=== PATIENT | female | born 1950 | race Caucasian/White ===

== ENCOUNTER 2017-03-21 12:27 | Emergency (ER) | payer BC ==
[~2017-03-21] VITALS: Ht 162.5 cm; Wt 90.7 kg
[~2017-03-21 12:27] MED LIST: ADVAIR 250/501 EA INH; ATARAX50 MG PO; ATOXIMETIN-B1 CAP PO; BENTYL10 MG PO; BIAXIN500 MG PO; CELEBREX200 MG PO; COMBIVENT1 ARO IH; CYMBALTA60 MG PO; DARVOCET N 1001 TAB PO; DOXYCYCLINE100 M3 PO; ESTRACE0.5 MG PO; HYDROCODONE BIT1 T11 PO; LASIX40 MG PO; MICARDIS40 MG PO; MOTRIN800 MG PO; NORFLEX100 MG PO; PANTOPRAZOLE SO40 MG PO; POTASSIUM20 MEQ PO; PREDNISONE10 MG PO; PREDNISONE20 MG PO; PREMARIN0.625 M1 PO; ROBITUSSIN AC 110 ML PO; SINGULAIR10 MG PO; TAMIFLU75 MG PO; TRAZODONE50 MG PO; VITAMIN D1000 IU PO; XANAX0.25 MG PO
[2017-03-21 14:56] VITALS: BP 123/57
[2017-03-21] MEDS ORDERED: EPIPEN 2-P0.3 MG/0.3 IJ (15:47)
== END 2017-03-21 15:50 | disposition home or self-care (01) ==
LOC: ED 12:27
DX: T63.441A Toxic effect of venom of bees, accidental (unintentional), initial encounter (principal); Z91.030 Bee allergy status; Z88.0 Allergy status to penicillin; Z88.1 Allergy status to other antibiotic agents; Z79.899 Other long term (current) drug therapy; Y92.9 Unspecified place or not applicable

== ENCOUNTER → 2018-02-07 | Outpatient (CLI) | payer MEDICARE ==
[~2018-02-07] MED LIST changes: +EPIPEN 2-P0.3 MG/0.3 IJ
== END | disposition home or self-care (01) ==
LOC: RAD 18:38
DX: R05 Cough (principal); R06.02 Shortness of breath; R09.89 Other specified symptoms and signs involving the circulatory and respiratory systems; R06.2 Wheezing

== ENCOUNTER 2019-05-19 20:19 | Inpatient (IN) | payer MEDICARE ==
[~2019-05-19] VITALS: Ht 162 cm; Wt 105.9 kg
[~2019-05-19 20:19] MED LIST changes: +KLOR-CON M1010 ME1 PO; +LASIX20 MG PO; -LASIX40 MG PO; +MECLIZINE HCL25 M2 PO; -POTASSIUM20 MEQ PO
[2019-05-19 20:20] VITALS: BP 113/67
[2019-05-19 21:02] LABS: BASO % 0.4 % (0.0-1.0); EOS # 0.2 10*3/uL (0.0-0.4); EOS % 2.3 % (1.0-4.0); HEMATOCRIT 43.1 % (37.0-47.0); HEMOGLOBIN 13.7 g/dl (12.0-16.0); LYMPH # 2.5 10*3/uL (1.3-4.4); LYMPH % 27.6 % (27.0-41.0); MEAN CELL VOLUME 90.7 fl (81.0-99.0); MEAN CORPUSCULAR HGB 28.8 pg (27.0-31.0); MEAN CORPUSCULAR HGB CONC 31.8 g/dl (33.0-37.0); MEAN PLATELET VOLUME 9.9 fl (9.6-12.3); MONO # 0.9 10*3/uL (0.1-1.0); MONO % 9.5 % (3.0-9.0); NEUT # 5.5 10*3/uL (2.3-7.9); NEUT % 59.9 % (47.0-73.0); PLATELET COUNT AUTOMATED 261 10*3/uL (130-400); RED BLOOD COUNT 4.75 10*6/uL (4.10-5.10); RED CELL DISTRI WIDTH 13.2 % (0-14.5); WHITE BLOOD COUNT 9.1 10*3/uL (4.8-10.8)
[2019-05-19 21:11] LABS: INTERNATIONAL NORM RATIO 0.9 (2.0-3.5)
[2019-05-19 21:20] LABS: ALBUMIN 3.3 gm/dl (3.1-4.5); ALKALINE PHOSPHATASE 73 U/L (45-117); BUN 20 mg/dl (7-24); CHLORIDE 108 mmol/L (98-107); CREATININE 1.21 mg/dL (0.55-1.02); LIPASE 75 U/L (73-393); POTASSIUM 3.9 mmol/L (3.5-5.1); SGOT/AST 16 IU/L (3-35); SGPT/ALT 22 U/L (12-78); SODIUM 139 mmol/L (136-145); TOTAL PROTEIN 7.3 gm/dL (6.4-8.2); TROPONIN I < 0.015 ng/ml (<0.045)
--- NOTE | 2019-05-19 21:41 | NUR ---
PT REPORTS PAIN MEDICINE SLIGHTLY EFFECTIVE RELIEVING PAIN.
[2019-05-19 21:48] LABS: BILIRUBIN NEGATIVE (NEGATIVE); BLOOD NEGATIVE (NEGATIVE); CLARITY CLEAR (CLEAR); COLOR YELLOW (YELLOW); GLUCOSE NEGATIVE (NEGATIVE); KETONE NEGATIVE (NEGATIVE); LEUKO ESTERASE 1+ (NEGATIVE); NITRITE NEGATIVE (NEGATIVE); UROBILINOGEN 0.2 E.U./dl (0.2-1.0)
[2019-05-19 22:06] LABS: BACTERIA TRACE; EPITHELIAL CELLS 0-2
--- NOTE | 2019-05-19 22:33 | NUR ---
PT REPORTS PAIN IS AGAIN WORSENING.
[2019-05-19 22:36] VITALS: BP 114/74
[2019-05-19 23:32] VITALS: BP 92/40
[2019-05-20 00:29] VITALS: BP 102/60
[2019-05-20 01:45] VITALS: BP 123/47
[2019-05-20] MEDS ORDERED: LOPRESSOR25 MG PO (02:23)
[2019-05-20] MEDS ORDERED: EFFEXOR XR150 M1 PO (02:24)
[2019-05-20] MEDS ORDERED: REQUIP2 MG PO (02:25)
[2019-05-20] MEDS ORDERED: BUSPIRONE10 MG PO (02:26)
[2019-05-20] MEDS ORDERED: VISTARIL25 M2 PO (02:27)
[2019-05-20] MEDS ORDERED: LIPITOR20 MG PO (02:27)
[2019-05-20] MEDS ORDERED: PROAIR HFA8.5 GM INH (02:29)
--- NOTE | 2019-05-20 02:31 | NUR ---
MED LIST REVIEWED WITH PATIENT.
--- NOTE | 2019-05-20 02:40 | NUR ---
Time: 144 A 68 year old FEMALE admitted to 5E under services of MAYDA BRANNON DO. Pt. arrived via stretcher from ER. Chief complaint: C/O ABDOMINAL/ FLANK PAIN X 3WEEKS. ALSO C/O DARK URINE WITH LIGHT COLORED STOOLS. ELMER MORSE
--- NOTE | 2019-05-20 06:20 | NUR ---
CALLED. NOTIFIED OF CONSULT.
[2019-05-20 06:21] LABS: ALBUMIN 2.9 gm/dl (3.1-4.5); ALKALINE PHOSPHATASE 65 U/L (45-117); BUN 20 mg/dl (7-24); CHLORIDE 110 mmol/L (98-107); CHOLESTEROL 144 mg/dL (<200); CREATININE 1.03 mg/dL (0.55-1.02); HDL CHOLESTEROL 38 mg/dl (40-60); LDL CHOLESTEROL 92 mg/dL (9-159); PHOSPHOROUS 3.4 mg/dL (2.5-4.9); SGOT/AST 13 IU/L (3-35); SGPT/ALT 22 U/L (12-78); SODIUM 141 mmol/L (136-145); TOTAL PROTEIN 6.4 gm/dL (6.4-8.2); TRIGLYCERIDES 71 mg/dl (<150); VLDL CHOLESTEROL 14 mg/dL (6-40)
[2019-05-20 06:34] LABS: BASO % 0.5 % (0.0-1.0); EOS # 0.3 10*3/uL (0.0-0.4); HEMOGLOBIN 12.7 g/dl (12.0-16.0); LYMPH # 3.3 10*3/uL (1.3-4.4); LYMPH % 39.5 % (27.0-41.0); MEAN CELL VOLUME 90.1 fl (81.0-99.0); MEAN CORPUSCULAR HGB 28.6 pg (27.0-31.0); MEAN CORPUSCULAR HGB CONC 31.8 g/dl (33.0-37.0); MEAN PLATELET VOLUME 10.1 fl (9.6-12.3); MONO # 0.9 10*3/uL (0.1-1.0); MONO % 10.2 % (3.0-9.0); NEUT # 3.8 10*3/uL (2.3-7.9); NEUT % 45.4 % (47.0-73.0); PLATELET COUNT AUTOMATED 246 10*3/uL (130-400); RED BLOOD COUNT 4.44 10*6/uL (4.10-5.10); RED CELL DISTRI WIDTH 13.2 % (0-14.5); WHITE BLOOD COUNT 8.4 10*3/uL (4.8-10.8)
--- NOTE | 2019-05-20 06:40 | NUR ---
CT CALLED . PATIENT HAS IODINE ALLERGY. DR MOORE WAS CALLED TO CLARIFY CT ORDER. WENT TO VOICE MAIL. MESSAGE LEFT FOR DR. MOORE TO CALL FLOOR TO CLARIFY CT ORDER.
--- NOTE | 2019-05-20 07:41 | NUR ---
SPOKE WITH DR MOORE REGARDING CT ORDER AND PT'S IVP DYE ALLERGY, STATES PT HAVE ONLY ORAL CONTRAST.
[2019-05-20 08:00] VITALS: BP 102/60
[2019-05-20 08:23] LABS: VITAMIN D, 25-HYDROXY 27.6 ng/mL (30-100)
--- NOTE | 2019-05-20 08:38 | NUR ---
PT COMPLAINING OF LOWER BACK/FLANK PAIN. MEDICATED WITH NORCO PER PRN ORDER. WILL MONTIOR FOR EFFECTIVENESS.
--- NOTE | 2019-05-20 11:45 | NUR ---
PT STATES EARLIER TORADOL HELPED WITH FLANK PAIN. WILL CONTINUE TO MONITOR.
--- NOTE | 2019-05-20 12:09 | NUR ---
ATTEMPTED TO MAKE DR MOORE AWARE OF CT RESULTS. MESSAGE LEFT, AWAITING CALL BACK.
--- NOTE | 2019-05-20 12:11 | NUR ---
DR ZULETA MADE AWARE OF BP OF 90/50 MANUALLY, AUTOMATIC MACHINE READ 80/40'S. PT ASYMPTOMATIC, DENIES ANY DIZZINESS. STATES HER NORM IS 100/60'S.
--- NOTE | 2019-05-20 12:23 | NUR ---
DR MOORE MADE AWARE OF CT RESULTS.
--- NOTE | 2019-05-20 15:10 | NUR ---
MEDICATED WITH VISTARIL AND NORCO FOR COMPLAINTS OF ANXIETY AND LOWER BACK/FLANK PAIN.
--- NOTE | 2019-05-20 15:29 | NUR ---
PT STATED NORCO GIVEN AT 1443 WAS EFFECTIVE IN EASING HER PAIN.
[2019-05-20 16:00] VITALS: BP 108/44
--- NOTE | 2019-05-20 17:38 | NUR ---
PT C/O NAUSEA AFTER HAVING CLEAR LIQUIDS FOR DINNER. STATES IT HURTS UP IN TO HER ESOPHAGUS. MEDICATED WITH ZOFRAN AT THIS TIME.
--- NOTE | 2019-05-20 18:20 | NUR ---
PT STATED ZOFRAN WAS EFFECTIVE IN EASING HER NAUSEA. C/O BACK PAIN AT THIS TIME AND REQUESTING PAIN MED. NORCO PO GIVEN.
--- NOTE | 2019-05-20 19:30 | NUR ---
REPORT RECEIVED FROM DAYLIGHT NURSE. PT IS AWAKE AND ON CELL PHONE. PT IV INFUSING WITHOUT DIFFICULTY. NO DISTRESS NOTICED. CALL LIGHT IN REACH
[2019-05-20 20:00] VITALS: BP 96/46
[2019-05-21] VITALS: BP 108/50
--- NOTE | 2019-05-21 00:28 | NUR ---
PT MEDICATED WITH NORCO PER ORDER FOR COMPLAINTS OF 8/10 BACK PAIN. WILL MONITOR EFFECTIVENESS.
--- NOTE | 2019-05-21 02:00 | NUR ---
NORCO APPEARS EFFECTIVE; PT SLEEPING AT THIS TIME.
--- NOTE | 2019-05-21 05:17 | NUR ---
24 HR chart check completed.
[2019-05-21 06:59] LABS: ALBUMIN 2.7 gm/dl (3.1-4.5); BUN 12 mg/dl (7-24); CHLORIDE 116 mmol/L (98-107); POTASSIUM 4.2 mmol/L (3.5-5.1); SODIUM 144 mmol/L (136-145)
[2019-05-21 07:04] LABS: ALKALINE PHOSPHATASE 53 U/L (45-117); CREATININE 0.74 mg/dL (0.55-1.02); SGOT/AST 13 IU/L (3-35); SGPT/ALT 19 U/L (12-78); TOTAL PROTEIN 5.7 gm/dL (6.4-8.2)
[2019-05-21 08:00] VITALS: BP 102/48; BP 106/56
--- NOTE | 2019-05-21 08:44 | NUR ---
PRN NORCO GIVEN FOR PT COMPLAINTS OF ABDOMINAL PAIN IN THE LEFT SIDE RADIATING AROUND TO THE BACK RATING IT 6/10. CALL LIGHT WITHIN REACH, WILL MONITOR
--- NOTE | 2019-05-21 10:14 | NUR ---
PATIENT SLEEPING. NO DISTRES NOTED. IV FLUIDS INFUSING. CALL LIGHT WITHIN REACH, WILL MONITOR
--- NOTE | 2019-05-21 10:51 | NUR ---
24 HR chart check completed.
[2019-05-21 12:00] VITALS: BP 100/42
--- NOTE | 2019-05-21 13:19 | NUR ---
PATIENT LAYING IN BED. NO COMPLAINTS AT THIS TIME. STATED THAT SHE'S EXCITED TO TRY A FULL LIQUID DIET TO GET SOMETHING ON HER STOMACH. CALL LIGHT WITHIN REACH, WILL MONITOR
--- NOTE | 2019-05-21 14:39 | NUR ---
PRN NORCO GIVEN FOR PT COMPLAINTS OF ABDOMINAL PAIN RATING IT 7/10. CALL LIGHT WITHIN REACH,WILL KELLY
--- NOTE | 2019-05-21 15:02 | NUR ---
PRN ZOFRAN GIVEN FOR PT COMPLAINTS OF NAUSEA. CALL LIGHT WITHIN REACH,WILL MONITOR
[2019-05-21 16:00] VITALS: BP 111/42
--- NOTE | 2019-05-21 17:05 | NUR ---
DISCUSSED PATIENTS RESULTS WITH DR. MOORE. ORDER RECIEVED TO GET AN ALPHA FETOPROTEIN TUMOR MARKER LAB DONE
--- NOTE | 2019-05-21 19:30 | NUR ---
REPORT RECEIVED FROM GIO PALENCIA. PT IS TALKING ON CELL PHONE AT THIS TIME. STATES THAT SHE DOES NOT NEED ANYTHING AT THIS TIME. RESPIRATIONS ARE EASY AND UNLABORED. CALL LIGHT IN REACH.
[2019-05-21 20:00] VITALS: BP 134/44
[2019-05-21 20:57] VITALS: BP 106/50
--- NOTE | 2019-05-21 21:30 | NUR ---
PT MEDICATED WITH NORCO FOR COMPLAINTS OF BACK PAIN. WILL MONITOR EFFECTIVENESS.
--- NOTE | 2019-05-21 22:37 | NUR ---
PT MEDICATED WITH ZOFRAN PER ORDER FOR COMPLAINTS OF NAUSEA. WILL MONITOR.
[2019-05-22] VITALS: BP 136/54
--- NOTE | 2019-05-22 00:30 | NUR ---
NORCO EFFECTIVE FOR BACK PAINT PER PT. ZOFRAN INEFFECTIVE PER PT. STATES "IM STILL NAUSEOUS" OFFERED PT GINGERALE. PT REFUSING HEVER BAUDILIO BECAUSE SHE IS "AFRAID TO DRINK ANYTHING" PT ALSO COMPLAINING OF HEADACHE BECAUSE SHE IS NAUSEOUS. OFFERED TO GET HER A COOL WASH CLOTH. PT COMPLAINING OF DRY MOUTH WELL AND "WANTS IT TO STOP" PT EDUCATED THAT GINGERALE WOULD HELP HER STOMACH WELL DRY MOUTH. PT STILL REFUSING AT THIS TIME.
--- NOTE | 2019-05-22 01:00 | NUR ---
PT IS SLEEPING AT THIS TIME. MEDICATIONS APPEAR EFFECTIVE AT THIS TIME,
--- NOTE | 2019-05-22 07:45 | NUR ---
MEDICATED WITH TORADOL AND ZOFRAN PER PRN ORDER FOR COMPLAINTS OF UPPER ABDOMINAL PAIN INTO HER BACK AND CONTINUED NAUSEA. PT STATES SHE HAS HAD NO RELIEF. WILL MONITOR FOR EFFECTIVENESS OF MEDICATIONS.
[2019-05-22 08:00] VITALS: BP 136/60
[2019-05-22 08:37] LABS: BASO % 0.5 % (0.0-1.0); EOS # 0.3 10*3/uL (0.0-0.4); EOS % 3.5 % (1.0-4.0); HEMATOCRIT 37.1 % (37.0-47.0); HEMOGLOBIN 11.5 g/dl (12.0-16.0); LYMPH % 26.8 % (27.0-41.0); MEAN CELL VOLUME 93.9 fl (81.0-99.0); MEAN CORPUSCULAR HGB 29.1 pg (27.0-31.0); MEAN PLATELET VOLUME 10.5 fl (9.6-12.3); MONO # 0.6 10*3/uL (0.1-1.0); MONO % 8.6 % (3.0-9.0); NEUT # 4.5 10*3/uL (2.3-7.9); NEUT % 60.3 % (47.0-73.0); PLATELET COUNT AUTOMATED 222 10*3/uL (130-400); RED BLOOD COUNT 3.95 10*6/uL (4.10-5.10); RED CELL DISTRI WIDTH 13.6 % (0-14.5); WHITE BLOOD COUNT 7.4 10*3/uL (4.8-10.8)
[2019-05-22 08:44] LABS: BUN 6 mg/dl (7-24); CHLORIDE 114 mmol/L (98-107); CREATININE 0.59 mg/dL (0.55-1.02); POTASSIUM 4.7 mmol/L (3.5-5.1); SODIUM 145 mmol/L (136-145)
--- NOTE | 2019-05-22 09:00 | NUR ---
[employer] in to talk to patient. Patient states lives at home with . There are few steps in the home. Physician: conrad [facility]acy: [facility] Home health services: none Patient's level of ADLs: INDEPENDENT Patient has working utilities: all working DME: [employer] Follow-up physician's appointment after d/c: will be made by hospitalist nurse director upon discharge Does patient want to access PORTAL?: no Discharge plan discussed with patient, she lives at home with family, is independent in adls and ambulation, she states she will return home when medically stable and denies any home needs, case management will follow. GENET MCDONALD
--- NOTE | 2019-05-22 09:32 | NUR ---
PT STATES EARLIER MEDICATIONS HELPED WITH ABDOMINAL PAIN AND NAUSEA. DOES STILL NOTE A MILD HEADACHE, BUT STATES IT IS IMPROVING WELL.
--- NOTE | 2019-05-22 10:45 | NUR ---
PT SLEEPING, NO DISTRESS NOTED.
[2019-05-22 12:00] VITALS: BP 144/61
--- NOTE | 2019-05-22 14:54 | NUR ---
MEDICATED WITH TORADOL AND ZOFRAN PER PRN ORDER FOR COMPLAINTS OF UPPER ABDOMINAL PAIN AND NAUSEA. WILL MONITOR FOR EFFECTIVENESS.
[2019-05-22 16:00] VITALS: BP 153/57
--- NOTE | 2019-05-22 16:05 | NUR ---
PT WAS NPO FOR ULTRASOUND OF ABDOMEN, SPOKE WITH DR JOHNS STATES OK TO RESUME FULL LIQUID DIET.
[2019-05-22] MEDS ORDERED: CARAFATE1 G1 PO (17:00)
[2019-05-22] MEDS ORDERED: ZOFRAN4 MG PO (17:35)
[2019-05-22] MEDS ORDERED: HYDROCODONE-AC1 EAC1 PO (17:35)
--- NOTE | 2019-05-22 18:00 | NUR ---
Discharge instructions reviewed with patient/family. Patient receptive and verbalizes understanding. Follow-up care arranged. Written instructions given to patient/family. IV site removed. KALEB MORIN
== END 2019-05-22 18:00 | disposition home or self-care (01) | DRG 380 ==
LOC: ED 20:19 → 5E 05-20 00:37 → EDHOLD 05-20 00:37 → 5E 05-20 01:25
PROVIDERS: Family Medicine; Physician Assistant; Student in an Organized Health Care Education/Training Program; ADMIT Internal Medicine
DX: K22.10 Ulcer of esophagus without bleeding (principal); N17.0 Acute kidney failure with tubular necrosis; E44.0 Moderate protein-calorie malnutrition; Z68.41 Body mass index [BMI] 40.0-44.9, adult; K21.9 Gastro-esophageal reflux disease without esophagitis; R13.10 Dysphagia, unspecified; I10 Essential (primary) hypertension; F32.9 Major depressive disorder, single episode, unspecified; F41.9 Anxiety disorder, unspecified; M06.9 Rheumatoid arthritis, unspecified; E66.01 Morbid (severe) obesity due to excess calories; E55.9 Vitamin D deficiency, unspecified; N23 Unspecified renal colic; K76.0 Fatty (change of) liver, not elsewhere classified; K57.30 Diverticulosis of large intestine without perforation or abscess without bleeding; Z96.653 Presence of artificial knee joint, bilateral; Z96.1 Presence of intraocular lens; I95.9 Hypotension, unspecified; E66.9 Obesity, unspecified; Z88.1 Allergy status to other antibiotic agents; Z91.030 Bee allergy status; Z91.041 Radiographic dye allergy status; Z90.710 Acquired absence of both cervix and uterus; Z98.41 Cataract extraction status, right eye; Z82.0 Family history of epilepsy and other diseases of the nervous system; Z82.49 Family history of ischemic heart disease and other diseases of the circulatory system; Z88.0 Allergy status to penicillin; Z83.3 Family history of diabetes mellitus; Z80.8 Family history of malignant neoplasm of other organs or systems; Z87.01 Personal history of pneumonia (recurrent); Z79.899 Other long term (current) drug therapy; Z90.49 Acquired absence of other specified parts of digestive tract

== ENCOUNTER → 2019-07-08 | Outpatient (CLI) | payer MEDICARE ==
[~2019-07-08] MED LIST changes: +BUSPIRONE10 MG PO; +CARAFATE1 G1 PO; +EFFEXOR XR150 M1 PO; +HYDROCODONE-AC1 EAC1 PO; +LIPITOR20 MG PO; +LOPRESSOR25 MG PO; +PROAIR HFA8.5 GM INH; +REQUIP2 MG PO; +VISTARIL25 M2 PO; +ZOFRAN4 MG PO
[2019-07-08 11:32] LABS: BUN 21 mg/dl (7-24); CHLORIDE 110 mmol/L (98-107); CHOLESTEROL 148 mg/dL (<200); CREATININE 0.81 mg/dL (0.55-1.02); POTASSIUM 4.5 mmol/L (3.5-5.1); SODIUM 142 mmol/L (136-145)
[2019-07-08 11:35] LABS: HDL CHOLESTEROL 49 mg/dl (40-60); LDL CHOLESTEROL 86 mg/dL (9-159); TRIGLYCERIDES 64 mg/dl (<150); VLDL CHOLESTEROL 13 mg/dL (6-40)
== END | disposition home or self-care (01) ==
LOC: LAB 10:47
PROVIDERS: Internal Medicine
DX: I10 Essential (primary) hypertension (principal); I25.10 Atherosclerotic heart disease of native coronary artery without angina pectoris; E78.5 Hyperlipidemia, unspecified

== ENCOUNTER → 2020-01-12 | Outpatient (CLI) | payer MEDICARE ==
[2020-01-12 12:47] LABS: BUN 21 mg/dl (7-24); CHLORIDE 113 mmol/L (98-107); CHOLESTEROL 140 mg/dL (<200); HDL CHOLESTEROL 41 mg/dl (40-60); LDL CHOLESTEROL 77 mg/dL (9-159); POTASSIUM 3.7 mmol/L (3.5-5.1); SODIUM 142 mmol/L (136-145); TRIGLYCERIDES 108 mg/dl (<150); VLDL CHOLESTEROL 22 mg/dL (6-40)
== END | disposition home or self-care (01) ==
LOC: LAB 12:04
PROVIDERS: Internal Medicine
DX: I10 Essential (primary) hypertension (principal); E78.5 Hyperlipidemia, unspecified

== ENCOUNTER → 2020-03-29 | Outpatient (CLI) | payer MEDICARE ==
[2020-03-29 12:32] LABS: BASO % 0.3 % (0.0-1.0); EOS # 0.3 10*3/uL (0.0-0.4); EOS % 3.5 % (1.0-4.0); HEMATOCRIT 41.6 % (37.0-47.0); LYMPH % 25.4 % (27.0-41.0); MEAN CELL VOLUME 88.3 fl (81.0-99.0); MEAN CORPUSCULAR HGB 27.6 pg (27.0-31.0); MEAN CORPUSCULAR HGB CONC 31.3 g/dl (33.0-37.0); MEAN PLATELET VOLUME 9.6 fl (9.6-12.3); MONO # 0.6 10*3/uL (0.1-1.0); MONO % 8.3 % (3.0-9.0); NEUT # 4.8 10*3/uL (2.3-7.9); NEUT % 62.1 % (47.0-73.0); PLATELET COUNT AUTOMATED 276 10*3/uL (130-400); RED BLOOD COUNT 4.71 10*6/uL (4.10-5.10); RED CELL DISTRI WIDTH 13.4 % (0-14.5); WHITE BLOOD COUNT 7.7 10*3/uL (4.8-10.8)
== END | disposition home or self-care (01) ==
LOC: LAB 12:05
PROVIDERS: ATTEND Internal Medicine Critical Care Medicine
DX: Z79.899 Other long term (current) drug therapy (principal)

== ENCOUNTER 2020-06-22 13:16 | Emergency (ER) | payer MEDICARE ==
[~2020-06-22] VITALS: Ht 162.5 cm; Wt 104.3 kg
[2020-06-22 13:26] VITALS: BP 112/56
[2020-06-22 14:32] LABS: HEMATOCRIT 41.3 % (37.0-47.0); LYMPH # 1.3 10*3/uL (1.3-4.4); LYMPH % 34.5 % (27.0-41.0); MEAN CELL VOLUME 89.8 fl (81.0-99.0); MEAN CORPUSCULAR HGB 27.8 pg (27.0-31.0); MEAN PLATELET VOLUME 9.9 fl (9.6-12.3); MONO # 0.6 10*3/uL (0.1-1.0); MONO % 16.3 % (3.0-9.0); NEUT # 1.8 10*3/uL (2.3-7.9); NEUT % 48.9 % (47.0-73.0); PLATELET COUNT AUTOMATED 232 10*3/uL (130-400); RED CELL DISTRI WIDTH 13.4 % (0-14.5); WHITE BLOOD COUNT 3.6 10*3/uL (4.8-10.8)
[2020-06-22 14:49] LABS: ALBUMIN 2.9 gm/dl (3.1-4.5); ALKALINE PHOSPHATASE 81 U/L (45-117); BUN 15 mg/dl (7-24); CHLORIDE 113 mmol/L (98-107); POTASSIUM 3.6 mmol/L (3.5-5.1); SGOT/AST 17 IU/L (3-35); SGPT/ALT 20 U/L (12-78); SODIUM 143 mmol/L (136-145); TOTAL PROTEIN 6.6 gm/dL (6.4-8.2)
[2020-06-22 14:57] LABS: TROPONIN I < 0.015 ng/ml (<0.045)
[2020-06-22 14:59] LABS: ACT PARTIAL THROMBO TIME 27.6 SECONDS (20.0-32.1); INTERNATIONAL NORM RATIO 0.9 (2.0-3.5)
[2020-06-22] MEDS ORDERED: DEXAMETHASONE6 MG PO (15:51)
== END 2020-06-22 15:59 | disposition home or self-care (01) ==
LOC: ED 13:16
PROVIDERS: Emergency Medicine
DX: U07.1 COVID-19 (principal); R79.1 Abnormal coagulation profile

== ENCOUNTER 2020-06-24 13:48 | Emergency (ER) | payer MEDICARE ==
[~2020-06-24] VITALS: Ht 157.4 cm; Wt 104.3 kg
[~2020-06-24 13:48] MED LIST changes: +DEXAMETHASONE6 MG PO
[2020-06-24] MEDS ORDERED: PREDNISONE20 M1 PO (17:04)
[2020-06-24 19:42] VITALS: BP 110/59
== END 2020-06-24 21:37 | disposition home or self-care (01) ==
LOC: ED 13:48
DX: U07.1 COVID-19 (principal); I50.9 Heart failure, unspecified; J45.909 Unspecified asthma, uncomplicated; F32.9 Major depressive disorder, single episode, unspecified; M06.9 Rheumatoid arthritis, unspecified; Z91.030 Bee allergy status; Z88.0 Allergy status to penicillin; Z91.041 Radiographic dye allergy status; Z79.899 Other long term (current) drug therapy; Z96.653 Presence of artificial knee joint, bilateral; Z90.711 Acquired absence of uterus with remaining cervical stump; Z90.49 Acquired absence of other specified parts of digestive tract; Z90.89 Acquired absence of other organs

== ENCOUNTER 2020-07-22 10:04 | Emergency (ER) | payer MEDICARE ==
[~2020-07-22] VITALS: Ht 162.5 cm; Wt 99.8 kg
[~2020-07-22 10:04] MED LIST changes: +PREDNISONE20 M1 PO
[2020-07-22 10:16] VITALS: BP 105/73
[2020-07-22 12:57] LABS: BILIRUBIN 1+ (Negative); BLOOD Negative (Negative); CLARITY Cloudy (Clear); COLOR Yellow (Yellow); GLUCOSE Negative (Negative); KETONE Negative (Negative); LEUKO ESTERASE Trace (Negative); NITRITE Negative (Negative); SPECIFIC GRAVITY 1.025 (1.001-1.030); UROBILINOGEN 0.2 E.U./dl (0.0-1.0)
[2020-07-22 12:58] LABS: MUCOUS TRACE
[2020-07-22] MEDS ORDERED: PREDNISONE20 M1 PO (13:34)
[2020-07-22] MEDS ORDERED: SEPTDS PO (13:34)
[2020-07-22] MEDS ORDERED: IBUPROFEN600 MG PO (13:34)
[2020-07-22] MEDS ORDERED: ROBAXIN-750750 MG PO (13:34)
== END 2020-07-22 14:14 | disposition home or self-care (01) ==
LOC: ED 10:04
PROVIDERS: Physician Assistant
DX: N39.0 Urinary tract infection, site not specified (principal); M54.42 Lumbago with sciatica, left side

== ENCOUNTER → 2020-10-08 | Outpatient (CLI) | payer MEDICARE ==
[~2020-10-08] MED LIST changes: +IBUPROFEN600 MG PO; +ROBAXIN-750750 MG PO; +SEPTDS PO
[2020-10-08 14:05] LABS: BASO % 0.2 % (0.0-1.0); HEMATOCRIT 38.5 % (37.0-47.0); LYMPH # 2.7 10*3/uL (1.3-4.4); LYMPH % 26.3 % (27.0-41.0); MEAN CORPUSCULAR HGB 29.3 pg (27.0-31.0); MEAN CORPUSCULAR HGB CONC 32.2 g/dl (33.0-37.0); MEAN PLATELET VOLUME 10.3 fl (9.6-12.3); MONO # 0.8 10*3/uL (0.1-1.0); NEUT # 6.6 10*3/uL (2.3-7.9); NEUT % 65.1 % (47.0-73.0); PLATELET COUNT AUTOMATED 260 10*3/uL (130-400); RED BLOOD COUNT 4.23 10*6/uL (4.10-5.10); RED CELL DISTRI WIDTH 12.7 % (0-14.5); WHITE BLOOD COUNT 10.2 10*3/uL (4.8-10.8)
[2020-10-08 14:37] LABS: ALBUMIN 3.2 gm/dl (3.1-4.5); ALKALINE PHOSPHATASE 70 U/L (45-117); BUN 16 mg/dl (7-24); CHLORIDE 111 mmol/L (98-107); CHOLESTEROL 145 mg/dL (<200); CREATININE 0.75 mg/dL (0.55-1.02); HDL CHOLESTEROL 54 mg/dl (40-60); LDL CHOLESTEROL 74 mg/dL (9-159); POTASSIUM 3.7 mmol/L (3.5-5.1); SGOT/AST 12 IU/L (3-35); SGPT/ALT 20 U/L (12-78); SODIUM 144 mmol/L (136-145); TOTAL PROTEIN 6.8 gm/dL (6.4-8.2); TRIGLYCERIDES 85 mg/dl (<150); VLDL CHOLESTEROL 17 mg/dL (6-40)
[2020-10-08 14:44] LABS: THYROID STIM HORMONE (HS) 0.929 uIU/ml (0.358-4.75)
== END | disposition home or self-care (01) ==
LOC: LAB 13:17
PROVIDERS: ATTEND Internal Medicine
DX: I10 Essential (primary) hypertension (principal); E55.9 Vitamin D deficiency, unspecified; U07.1 COVID-19; Z13.1 Encounter for screening for diabetes mellitus; Z79.899 Other long term (current) drug therapy; Z86.16 Personal history of COVID-19

== ENCOUNTER → 2022-03-10 | Outpatient (CLI) | payer MEDICARE ==
[2022-03-10 16:14] LABS: BASO % 0.6 % (0.0-1.0); EOS # 0.1 10*3/uL (0.0-0.4); EOS % 2.2 % (1.0-4.0); HEMATOCRIT 36.1 % (37.0-47.0); LYMPH # 1.9 10*3/uL (1.3-4.4); MEAN CORPUSCULAR HGB 30.8 pg (27.0-31.0); MEAN CORPUSCULAR HGB CONC 32.4 g/dl (33.0-37.0); MEAN PLATELET VOLUME 9.6 fl (9.6-12.3); MONO # 0.8 10*3/uL (0.1-1.0); NEUT # 3.6 10*3/uL (2.3-7.9); NEUT % 55.7 % (47.0-73.0); PLATELET COUNT AUTOMATED 194 10*3/uL (130-400); RED CELL DISTRI WIDTH 22.5 % (0-14.5); WHITE BLOOD COUNT 6.4 10*3/uL (4.8-10.8)
[2022-03-10 16:29] LABS: ALKALINE PHOSPHATASE 89 U/L (45-117); BUN 17 mg/dl (7-24); CHLORIDE 113 mmol/L (98-107); CREATININE 0.71 mg/dL (0.55-1.02); POTASSIUM 4.2 mmol/L (3.5-5.1); SGOT/AST 17 IU/L (3-35); SGPT/ALT 17 U/L (12-78); SODIUM 140 mmol/L (136-145)
[2022-03-11 09:07] LABS: HEPATITIS B SURFACE AB Non Reactive (.); HEPATITIS B SURFACE AG Negative (Negative)
[2022-03-11 10:07] LABS: TOTAL PROTEIN, SERUM 6.6 g/dL (6.0-8.5)
[2022-03-11 12:07] LABS: RHEUMATOID FACTOR <10.0 IU/mL (<14.0)
[2022-03-11 16:08] LABS: ALBUMIN 3.3 g/dL (2.9-4.4); ALPHA-1-GLOBULIN 0.3 g/dL (0.0-0.4); ALPHA-2-GLOBULIN 0.8 g/dL (0.4-1.0); BETA GLOBULIN 1.3 g/dL (0.7-1.3); GLOBULIN, TOTAL 3.3 g/dL (2.2-3.9); M-SPIKE Not Observed g/dL (Not Observed)
[2022-03-12 00:06] LABS: CCP ANTIBODIES IGG/IGA 8 units (0-19)
[2022-03-13 10:07] LABS: TB1 Ag VALUE 0.02 IU/mL (.)
== END | disposition home or self-care (01) ==
LOC: LAB 15:15
PROVIDERS: ATTEND Internal Medicine Rheumatology
DX: C18.9 Malignant neoplasm of colon, unspecified (principal); E78.5 Hyperlipidemia, unspecified; M25.50 Pain in unspecified joint; Z79.899 Other long term (current) drug therapy; M06.9 Rheumatoid arthritis, unspecified; Z51.81 Encounter for therapeutic drug level monitoring; Z11.59 Encounter for screening for other viral diseases; M25.60 Stiffness of unspecified joint, not elsewhere classified

== ENCOUNTER → 2023-01-06 | Outpatient (CLI) | payer OTHER | END | disposition home or self-care (01) | LOC: RAD 14:54 | PROVIDERS: ATTEND Internal Medicine Rheumatology | DX: M05.79 Rheumatoid arthritis with rheumatoid factor of multiple sites without organ or systems involvement (principal); C18.9 Malignant neoplasm of colon, unspecified; M25.50 Pain in unspecified joint; M25.60 Stiffness of unspecified joint, not elsewhere classified; Z51.81 Encounter for therapeutic drug level monitoring; R70.0 Elevated erythrocyte sedimentation rate; M54.6 Pain in thoracic spine; T50.905A Adverse effect of unspecified drugs, medicaments and biological substances, initial encounter; Z79.899 Other long term (current) drug therapy; X58.XXXA Exposure to other specified factors, initial encounter ==

== ENCOUNTER → 2025-04-25 | Outpatient (CLI) | payer OTHER ==
[~2025-04-25] MED LIST changes: -CELEBREX200 MG PO; +CELECOXIB200 M1 PO; +CLARITIN10 MG PO; +ERTAPENEM1 GM IV; +FOSAMAX70 M1 PO; +LOSARTAN POTASS25 M1 PO; +RASUVO15 MG/0.3 SC; +TRAMADOL HCL50 MG PO; +VITAMIN D3125 MC1 PO
[2025-04-25 12:01] LABS: MEAN CELL VOLUME 94.0 fl (81.0-99.0); MEAN CORPUSCULAR HGB 30.4 pg (27.0-31.0); MEAN PLATELET VOLUME 9.5 fl (9.6-12.3); NUCLEATED RED BLOOD CELL 0.0 % (0.0-0.0); NUCLEATED RED BLOOD CELL 0.0 10*3/uL (0.0-0.0); PLATELET COUNT AUTOMATED 274.0 10*3/uL (130-400); RED CELL DISTRI WIDTH 14.4 % (0-14.5)
[2025-04-25 12:36] LABS: SGPT/ALT 10 U/L (5-49)
[2025-04-26 11:07] LABS: CCP ANTIBODIES IGG/IGA 10 units (0-19)
[2025-04-26 15:07] LABS: A/G RATIO 1.0 (0.7-1.7); BETA GLOBULIN 1.3 g/dL (0.7-1.3); GLOBULIN, TOTAL 3.4 g/dL (2.2-3.9)
[2025-04-27 06:07] LABS: TB1 Ag VALUE 0.03 IU/mL (.)
== END | disposition home or self-care (01) ==
LOC: LAB 11:09
PROVIDERS: ATTEND Internal Medicine Rheumatology
DX: M19.012 Primary osteoarthritis, left shoulder (principal); M19.011 Primary osteoarthritis, right shoulder